=== PATIENT | female | born 1940 | race Hispanic/Latino ===

== ENCOUNTER 2018-08-21 17:50 | Emergency (ER) | payer MEDICARE, OTHER ==
[~2018-08-21] VITALS: Ht 157.5 cm; Wt 99.8 kg
[~2018-08-21 17:50] MED LIST: BACLOFEN10 MG PO; GABAPENTIN100 MG PO; METFORMIN HCL1000 MG PO; STAGESIC 5-5001 EACH PO; ZOFRAN ODT4 MG PO
[2018-08-21 18:36] LABS: BASOPHILS # (AUTO) 0.1 (0.0-0.1); BASOPHILS % 0.7 % (0.0-1.0); EOSINOPHILS # (AUTO) 0.3 (0.0-0.4); EOSINOPHILS % 3.4 % (0.0-6.0); HEMATOCRIT 43.7 % (34.2-44.1); HEMOGLOBIN 14.7 g/dL (12.0-16.0); LYMPHOCYTES % 26.3 % (18.0-39.1); MEAN CORPUSCULAR HEMOGLOBIN 30.9 pg (28-32); MEAN CORPUSCULAR HGB CONC 33.6 g/dL (31-35); MONOCYTES # (AUTO) 0.8 (0.2-0.8); MONOCYTES % 10.7 % (4.4-11.3); NEUTROPHILS # (AUTO) 4.4 (2.1-6.9); NEUTROPHILS % 58.5 % (38.7-80.0); PLATELET COUNT 232 x10e3/uL (140-360); RED BLOOD COUNT 4.75 x10e6/uL (3.6-5.1)
[2018-08-21 18:45] LABS: INR 1.01; PROTHROMBIN TIME 14.2 seconds (11.9-14.5)
[2018-08-21 18:45] LABS: BILIRUBIN,URINE NEGATIVE (NEGATIVE); CLARITY,URINE CLEAR (CLEAR); COLOR,URINE YELLOW (YELLOW); KETONES,URINE NEGATIVE (NEGATIVE); LEUKOCYTE ESTERASE ,URINE TRACE (NEGATIVE); NITRITE,URINE NEGATIVE (NEGATIVE); PROTEIN,URINE DIPSTICK NEGATIVE (NEGATIVE); URINE UROBILINOGEN 0.2 mg/dL (0.2 - 1)
[2018-08-21 18:46] LABS: PARTIAL THROMBOPLASTIN TIME 35.4 seconds (23.8-35.5)
[2018-08-21 18:52] LABS: EPITHELIAL CELLS,URINE RARE /LPF
[2018-08-21 18:54] LABS: ALANINE AMINOTRANSFERASE 50 IU/L (0-55); ALBUMIN 4.3 g/dL (3.5-5.0); ALBUMIN/GLOBULIN RATIO 1.2 (0.8-2.0); ALKALINE PHOSPHATASE 63 IU/L (40-150); ANION GAP 13.2 mmol/L (8-16); BLOOD UREA NITROGEN 16 mg/dL (7-26); BUN/CREATININE RATIO 12 (6-25); CALCIUM 9.2 mg/dL (8.4-10.2); CARBON DIOXIDE 21 mmol/L (22-29); CHLORIDE 100 mmol/L (98-107); CREATINE KINASE 215 IU/L (29-168); CREATININE, SERUM 1.38 mg/dL (0.57-1.11); EST GLOMERULAR FILTRATION RATE 37 ML/MIN (60-); GLUCOSE 99 mg/dL (74-118); MAGNESIUM 2.5 MG/DL (1.3-2.1); POTASSIUM 4.2 mmol/L (3.5-5.1); SODIUM 130 mmol/L (136-145)
--- NOTE | 2018-08-21 19:50 | Diagnostic Imaging Report ---
EXAMINATION: CHEST SINGLE (PORTABLE) INDICATION: Chest pressure. COMPARISON: None FINDINGS: AP view TUBES and LINES: None. LUNGS: Lungs are well inflated. Lungs are clear. There is no evidence of pneumonia or pulmonary edema. PLEURA: No pleural effusion or pneumothorax. HEART AND MEDIASTINUM: The cardiomediastinal silhouette is unremarkable. BONES AND SOFT TISSUES: No acute osseous lesion. Soft tissues are unremarkable. UPPER ABDOMEN: No free air under the diaphragm. IMPRESSION: No acute thoracic abnormality. Signed by: DR. Reji Abdullahi MD on 08/21/2018 7:47 PM
[2018-08-21] MEDS ORDERED: DEXAMETHASONE SOD PHOS 10 MG/1 ML VIAL IV ONE (20:15)
[2018-08-21] MEDS ORDERED: SODIUM CHLORIDE 0.9% 1000ML 1,000 ML ONE (21:01)
[2018-08-21] MEDS ORDERED: SODIUM CHLORIDE 0.9% 1000ML 1,000 ML IV SCH (21:15)
[2018-08-21] MEDS ORDERED: ACETAMINOPHEN/CODEINE 300MG - 30MG TAB PO ONE (21:15)
[2018-08-21 21:48] VITALS: BP 150/79
[2018-08-21] MEDS ORDERED: CEFDINIR300 MG PO (22:04)
== END 2018-08-21 22:08 | disposition home or self-care (01) ==
LOC: ER 17:50
DX: R00.2 Palpitations (principal); R05 Cough; J20.9 Acute bronchitis, unspecified; E11.9 Type 2 diabetes mellitus without complications; I10 Essential (primary) hypertension; I25.10 Atherosclerotic heart disease of native coronary artery without angina pectoris; I73.9 Peripheral vascular disease, unspecified
CPT/HCPCS: 36415; 71045; 80053; 81001; 82550; 82553; 83735; 84484; 85025; 85610; 85730; 93005; 96374; 99284; J1100; J7030

== ENCOUNTER 2021-12-30 15:56 | Emergency (ER) | payer MEDICARE ==
[~2021-12-30] VITALS: Ht 157.5 cm; Wt 99.8 kg
[~2021-12-30 15:56] MED LIST changes: +CEFDINIR300 MG PO
[2021-12-30 16:23] LABS: BASOPHILS # (AUTO) 0.1 (0.0-0.1); BASOPHILS % 0.6 % (0.0-1.0); EOSINOPHILS # (AUTO) 0.2 (0.0-0.4); EOSINOPHILS % 1.6 % (0.0-6.0); LYMPHOCYTES # (AUTO) 2.3 (1.0-3.2); LYMPHOCYTES % 24.8 % (18.0-39.1); MEAN CORPUSCULAR HEMOGLOBIN 31.7 pg (28-32); MEAN CORPUSCULAR HGB CONC 32.5 g/dL (31-35); MEAN CORPUSCULAR VOLUME 97.6 fL (81-99); MONOCYTES # (AUTO) 0.9 (0.2-0.8); MONOCYTES % 9.7 % (4.4-11.3); NEUTROPHILS # (AUTO) 5.8 (2.1-6.9); NEUTROPHILS % 62.9 % (38.7-80.0); PLATELET COUNT 222 x10e3/uL (140-360); RED CELL DISTRIBUTION WIDTH 13.2 % (11.7-14.4)
[2021-12-30 16:41] LABS: ALBUMIN 3.7 g/dL (3.5-5.0); ALBUMIN/GLOBULIN RATIO 1.1 (0.8-2.0); ANION GAP 12.3 mmol/L (8-16); CALCIUM 8.6 mg/dL (8.4-10.2); CREATININE, SERUM 1.19 mg/dL (0.57-1.11); POTASSIUM 4.3 mmol/L (3.5-5.1)
== END 2021-12-30 17:55 | disposition home or self-care (01) ==
LOC: ER 16:01
DX: S81.801A Unspecified open wound, right lower leg, initial encounter (principal); I10 Essential (primary) hypertension; E11.9 Type 2 diabetes mellitus without complications; I25.10 Atherosclerotic heart disease of native coronary artery without angina pectoris; K21.9 Gastro-esophageal reflux disease without esophagitis; G70.00 Myasthenia gravis without (acute) exacerbation; M54.9 Dorsalgia, unspecified; G89.29 Other chronic pain
CPT/HCPCS: 36415; 80053; 85025; 99283

== ENCOUNTER 2022-03-08 13:02 | Emergency (ER) | payer MEDICARE ==
[~2022-03-08] VITALS: Ht 157.5 cm; Wt 99.8 kg
[2022-03-08 13:34] LABS: BASOPHILS % 0.5 % (0.0-1.0); EOSINOPHILS # (AUTO) 0.1 (0.0-0.4); EOSINOPHILS % 1.3 % (0.0-6.0); HEMATOCRIT 43.1 % (34.2-44.1); HEMOGLOBIN 14.2 g/dL (12.0-16.0); LYMPHOCYTES % 23.8 % (18.0-39.1); MEAN CORPUSCULAR HGB CONC 32.9 g/dL (31-35); MEAN CORPUSCULAR VOLUME 94.1 fL (81-99); MONOCYTES # (AUTO) 0.6 (0.2-0.8); MONOCYTES % 7.5 % (4.4-11.3); NEUTROPHILS # (AUTO) 5.5 (2.1-6.9); NEUTROPHILS % 66.5 % (38.7-80.0); PLATELET COUNT 212 x10e3/uL (140-360); RED BLOOD COUNT 4.58 x10e6/uL (3.6-5.1); RED CELL DISTRIBUTION WIDTH 12.9 % (11.7-14.4)
[2022-03-08 14:17] LABS: ALBUMIN/GLOBULIN RATIO 1.1 (0.8-2.0); ANION GAP 12.9 mmol/L (8-16); CREATININE, SERUM 1.05 mg/dL (0.57-1.11); POTASSIUM 3.9 mmol/L (3.5-5.1)
[2022-03-08 14:22] LABS: CLARITY,URINE TURBID (CLEAR); COLOR,URINE YELLOW (YELLOW); KETONES,URINE NEGATIVE (NEGATIVE); LEUKOCYTE ESTERASE ,URINE LARGE (NEGATIVE); NITRITE,URINE POSITIVE (NEGATIVE); PROTEIN,URINE DIPSTICK NEGATIVE (NEGATIVE); URINE UROBILINOGEN 0.2 mg/dL (0.2 - 1)
[2022-03-08 14:31] LABS: BACTERIA,URINE MODERATE /HPF; EPITHELIAL CELLS,URINE MODERATE /LPF; RBC,URINE 0-5 /HPF (0-5); RENAL EPITHELIAL CELLS,URINE FEW
[2022-03-08] MEDS ORDERED: SODIUM CHLORIDE 0.9% 500ML 500 ML IV ONE (15:00)
[2022-03-08] MEDS ORDERED: CEFDINIR300 MG PO (15:47)
== END 2022-03-08 16:24 | disposition home or self-care (01) ==
LOC: ER 13:05
DX: R53.1 Weakness (principal); N39.0 Urinary tract infection, site not specified; I10 Essential (primary) hypertension; E11.65 Type 2 diabetes mellitus with hyperglycemia; I25.10 Atherosclerotic heart disease of native coronary artery without angina pectoris; K21.9 Gastro-esophageal reflux disease without esophagitis; M54.9 Dorsalgia, unspecified; G89.29 Other chronic pain; Z20.822 Contact with and (suspected) exposure to COVID-19
CPT/HCPCS: 36415; 70450; 71045; 80053; 81001; 83735; 84484; 85025; 87086; 87186; 93005; 99284; J0696; J7040; U0002

== ENCOUNTER 2022-04-13 06:32 | Emergency (ER) | payer MEDICARE ==
[~2022-04-13] VITALS: Ht 157.5 cm; Wt 99.8 kg
[2022-04-13] MEDS ORDERED: ONDANSETRON HCL INJ 2MG/ML 2ML 2 MG/ML VIAL IV STA (07:06)
[2022-04-13 07:12] LABS: BASOPHILS % 0.5 % (0.0-1.0); EOSINOPHILS % 0.2 % (0.0-6.0); HEMATOCRIT 42.6 % (34.2-44.1); HEMOGLOBIN 14.2 g/dL (12.0-16.0); LYMPHOCYTES # (AUTO) 1.5 (1.0-3.2); LYMPHOCYTES % 17.6 % (18.0-39.1); MEAN CORPUSCULAR HEMOGLOBIN 31.3 pg (28-32); MEAN CORPUSCULAR HGB CONC 33.3 g/dL (31-35); MONOCYTES # (AUTO) 0.5 (0.2-0.8); MONOCYTES % 5.2 % (4.4-11.3); NEUTROPHILS # (AUTO) 6.5 (2.1-6.9); NEUTROPHILS % 75.3 % (38.7-80.0); PLATELET COUNT 217 x10e3/uL (140-360); RED BLOOD COUNT 4.53 x10e6/uL (3.6-5.1); RED CELL DISTRIBUTION WIDTH 12.7 % (11.7-14.4)
[2022-04-13] MEDS ORDERED: MECLIZINE HCL 12.5 MG TAB PO ONE (07:15)
[2022-04-13] MEDS ORDERED: SODIUM CHLORIDE 0.9% 500ML 500 ML IV ONE (07:15)
[2022-04-13 07:48] LABS: ALANINE AMINOTRANSFERASE 25 IU/L (0-55); ALBUMIN 4.2 g/dL (3.5-5.0); ALBUMIN/GLOBULIN RATIO 1.1 (0.8-2.0); ALKALINE PHOSPHATASE 55 IU/L (40-150); ANION GAP 16.4 mmol/L (8-16); BLOOD UREA NITROGEN 13 mg/dL (7-26); BUN/CREATININE RATIO 14 (6-25); CALCIUM 9.3 mg/dL (8.4-10.2); CARBON DIOXIDE 20 mmol/L (22-29); CHLORIDE 107 mmol/L (98-107); CREATINE KINASE 68 IU/L (29-168); CREATININE, SERUM 0.92 mg/dL (0.57-1.11); GLUCOSE 200 mg/dL (74-118); INR 1.07; MAGNESIUM 2.2 MG/DL (1.3-2.1); POTASSIUM 4.4 mmol/L (3.5-5.1); PROTHROMBIN TIME 14.9 seconds (11.9-14.5); SODIUM 139 mmol/L (136-145)
[2022-04-13 07:49] LABS: PARTIAL THROMBOPLASTIN TIME 35.3 seconds (23.8-35.5)
[2022-04-13] MEDS ORDERED: ONDANSETRON ODT4 MG PO (09:24)
[2022-04-13] MEDS ORDERED: MECLIZINE HCL12.5 MG PO (09:24)
== END 2022-04-13 10:16 | disposition home or self-care (01) ==
LOC: ER 06:41
DX: R42 Dizziness and giddiness (principal); E66.9 Obesity, unspecified; I10 Essential (primary) hypertension; E11.9 Type 2 diabetes mellitus without complications; I25.10 Atherosclerotic heart disease of native coronary artery without angina pectoris; Z88.0 Allergy status to penicillin; Z90.49 Acquired absence of other specified parts of digestive tract; Z68.41 Body mass index [BMI] 40.0-44.9, adult
CPT/HCPCS: 36415; 70450; 80053; 82550; 82553; 83735; 83880; 84484; 85025; 85610; 85730; 93005; 99284; J2405; J7040; J8597

== ENCOUNTER 2024-01-27 04:35 | Emergency (ER) | payer MEDICARE ==
[~2024-01-27] VITALS: Ht 157.5 cm; Wt 99.8 kg
[~2024-01-27 04:35] MED LIST changes: +MECLIZINE HCL12.5 MG PO; +ONDANSETRON ODT4 MG PO; +ULTRAM 50MG50 MG PO
[2024-01-27] MEDS: Morphine 4mg INJECTION 4 MG/ML INJ IV ONE (05:05)
[2024-01-27] MEDS: ONDANSETRON HCL INJ 2MG/ML 2ML 2 MG/ML VIAL IV STA (05:05)
[2024-01-27] MEDS: SODIUM CHLORIDE 0.9% 1000ML 1,000 ML IV ONE (05:05)
[2024-01-27 05:22] LABS: BASOPHILS % 0.2 % (0.0-1.0); EOSINOPHILS % 0.2 % (0.0-6.0); HEMOGLOBIN 15.1 g/dL (12.0-16.0); LYMPHOCYTES # (AUTO) 1.6 (1.0-3.2); LYMPHOCYTES % 17.3 % (18.0-39.1); MEAN CORPUSCULAR HEMOGLOBIN 30.3 pg (28-32); MEAN CORPUSCULAR HGB CONC 32.8 g/dL (31-35); MEAN CORPUSCULAR VOLUME 92.2 fL (81-99); MONOCYTES # (AUTO) 0.6 (0.2-0.8); MONOCYTES % 6.5 % (4.4-11.3); NEUTROPHILS # (AUTO) 7.1 (2.1-6.9); NEUTROPHILS % 75.2 % (38.7-80.0); PLATELET COUNT 215 x10e3/uL (140-360); RED BLOOD COUNT 4.99 x10e6/uL (3.6-5.1); RED CELL DISTRIBUTION WIDTH 13.6 % (11.7-14.4); WHITE BLOOD COUNT 9.49 x10e3/uL (4.8-10.8)
[2024-01-27 05:38] LABS: ALANINE AMINOTRANSFERASE 27 IU/L (0-55); ALBUMIN 4.3 g/dL (3.5-5.0); ALBUMIN/GLOBULIN RATIO 1.4 (0.8-2.0); ALKALINE PHOSPHATASE 50 IU/L (40-150); ANION GAP 19.9 mmol/L (8-16); BILIRUBIN,TOTAL 0.8 mg/dL (0.2-1.2); BLOOD UREA NITROGEN 13 mg/dL (7-26); BUN/CREATININE RATIO 13 (6-25); CALCIUM 9.8 mg/dL (8.4-10.2); CARBON DIOXIDE 20 mmol/L (22-29); CHLORIDE 102 mmol/L (98-107); CREATINE KINASE 19 IU/L (29-168); CREATININE, SERUM 1.02 mg/dL (0.57-1.11); EST GLOMERULAR FILTRATION RATE 54 ML/MIN (>=60); GLUCOSE 157 mg/dL (74-118); POTASSIUM 3.9 mmol/L (3.5-5.1); SODIUM 138 mmol/L (136-145); TOTAL PROTEIN 7.4 g/dL (6.5-8.1)
[2024-01-27 06:04] LABS: TROPONIN I < 0.05 ng/mL (0.0-0.40)
[2024-01-27 06:05] LABS: COLOR,URINE YELLOW (YELLOW)
[2024-01-27 06:06] LABS: BILIRUBIN,URINE MODERATE (NEGATIVE); CLARITY,URINE CLEAR (CLEAR); GLUCOSE, URINE NEGATIVE (NEGATIVE); KETONES,URINE >=160 (NEGATIVE); LEUKOCYTE ESTERASE ,URINE TRACE (NEGATIVE); NITRITE,URINE NEGATIVE (NEGATIVE); PH,URINE 5.5 (5 - 7); PROTEIN,URINE DIPSTICK 2+ (NEGATIVE); URINE UROBILINOGEN 0.2 mg/dL (0.2 - 1)
[2024-01-27 06:35] LABS: RBC,URINE 0-5 /HPF (0-5); WBC,URINE (MAN) 21-50 /HPF (0-5)
[2024-01-27 06:36] LABS: BACTERIA,URINE FEW /HPF; EPITHELIAL CELLS,URINE FEW /LPF
[2024-01-27 07:15] VITALS: PULSE 54; RESP 16; TEMP 98.4; O2SAT 98
[2024-01-27] MEDS ORDERED: IOPAMIDOL 370 MG/ML 100 ML INFUS..BTL INJ ONE (07:29)
[2024-01-27] MEDS: DIPHENHYDRAMINE HCL INJ 50 MG/ML VIAL IV ONE (07:56)
[2024-01-27] MEDS: PROMETHAZINE 12.5MG/ NACL 0.9% 12.5 MG/50 ML BAG IV ONE (07:56)
[2024-01-27] MEDS: SODIUM CHLORIDE 0.9% 500ML 500 ML IV ONE (07:57)
[2024-01-27] MEDS ORDERED: BACTRIM DS TAB1 EACH PO (09:35)
[2024-01-27] MEDS ORDERED: CIPRO500 MG PO (09:35)
[2024-01-27] MEDS ORDERED: PROMETHAZINE12.5 MG PR (09:35)
== END 2024-01-27 10:00 | disposition home or self-care (01) ==
LOC: ER 04:45
DX: R11.2 Nausea with vomiting, unspecified (principal); R10.30 Lower abdominal pain, unspecified; N39.0 Urinary tract infection, site not specified; E11.65 Type 2 diabetes mellitus with hyperglycemia; I10 Essential (primary) hypertension; I25.10 Atherosclerotic heart disease of native coronary artery without angina pectoris; K57.90 Diverticulosis of intestine, part unspecified, without perforation or abscess without bleeding; K21.9 Gastro-esophageal reflux disease without esophagitis; F41.9 Anxiety disorder, unspecified; E78.5 Hyperlipidemia, unspecified; K76.0 Fatty (change of) liver, not elsewhere classified; M54.9 Dorsalgia, unspecified; G89.29 Other chronic pain; R94.31 Abnormal electrocardiogram [ECG] [EKG]
CPT/HCPCS: 36415; 74177; 80053; 81001; 82550; 84484; 85025; 87086; 93005; 99284; C9113; J0696; J1200; J2270; J2405; J2550; J7030; J7040; Q9967

== ENCOUNTER 2025-05-17 01:52 | Inpatient (IN) | payer MEDICARE ==
[~2025-05-17] VITALS: Ht 157.5 cm; Wt 99.8 kg
[~2025-05-17 01:52] MED LIST changes: +BACTRIM DS TAB1 EACH PO; +CIPRO500 MG PO; +PROMETHAZINE12.5 MG PR
[2025-05-17] MEDS ORDERED: Morphine 4mg INJECTION 4 MG/ML INJ IV STA (02:01)
[2025-05-17 02:08] VITALS: RESP 19; TEMP 98.1
[2025-05-17] MEDS: ONDANSETRON HCL INJ 2MG/ML 2ML 2 MG/ML VIAL IV STA (02:21)
[2025-05-17] MEDS: SODIUM CHLORIDE 0.9% 1000ML 1,000 ML IV STA (02:21)
[2025-05-17 02:23] LABS: BASOPHILS % 0.5 % (0.0-1.0); EOSINOPHILS % 2.0 % (0.0-6.0); LYMPHOCYTES % 17.6 % (18.0-39.1); MONOCYTES % 6.8 % (4.4-11.3); NEUTROPHILS % 72.8 % (38.7-80.0); RED CELL DISTRIBUTION WIDTH 12.8 % (11.7-14.4)
[2025-05-17 02:47] LABS: EST GLOMERULAR FILTRATION RATE 51.0 ML/MIN (>=60)
[2025-05-17] MEDS: MECLIZINE HCL 12.5 MG TAB PO ONE (03:17)
[2025-05-17] MEDS ORDERED: PROMETHAZINE HCL (IM) 25 MG/ML VIAL IM ONE (03:45)
[2025-05-17] MEDS ORDERED: Morphine 4mg INJECTION 4 MG/ML INJ IV PRN (04:30)
[2025-05-17] MEDS: SODIUM CHLORIDE 0.9% 1000ML 1,000 ML IV SCH (04:54)
[2025-05-17] MEDS ORDERED: IOPAMIDOL 370 MG/ML 100 ML INFUS..BTL INJ ONE (04:57)
[2025-05-17 06:29] LABS: LEUKOCYTE ESTERASE ,URINE MODERATE (NEGATIVE)
[2025-05-17 06:30] VITALS: PULSE 81
[2025-05-17 06:30] LABS: PROTEIN,URINE DIPSTICK NEGATIVE (NEGATIVE); URINE UROBILINOGEN 0.2 mg/dL (0.2 - 1)
[2025-05-17] MEDS: KETOROLAC TROMETHAMINE 30 MG/ML VIAL IV STA (06:52)
[2025-05-17 06:54] LABS: EPITHELIAL CELLS,URINE MODERATE /LPF; WBC,URINE (MAN) >50 /HPF (0-5)
[2025-05-17 08:00] VITALS: BP 144/60; PULSE 74; RESP 17; TEMP 97.6; O2SAT 99
[2025-05-17] MEDS: PROMETHAZINE 12.5MG/ NACL 0.9% 50 ML IV STA (09:34)
[2025-05-17] MEDS ORDERED: TRAMADOL HCL 50 MG TAB PO PRN (10:00)
[2025-05-17] MEDS ORDERED: DEXTROSE 50% SYRINGE 50 ML IV PRN (10:00)
[2025-05-17] MEDS ORDERED: LISINOPRIL10 MG PO (10:24)
[2025-05-17] MEDS ORDERED: LYRICA150 MG PO (10:28)
[2025-05-17] MEDS ORDERED: FEROSUL325 MG PO (10:28)
[2025-05-17] MEDS: METOCLOPRAMIDE HCL 10 MG/2ML VIAL IV SCH (10:37)
[2025-05-17] MEDS: APIXABAN 5 MG TABLET PO SCH (10:37)
[2025-05-17] MEDS: INSULIN LISPRO 100 UNIT/1 ML 3ML VIAL SQ SCH (11:30)
[2025-05-17 12:30] VITALS: BP 131/55; PULSE 77; RESP 19; TEMP 97.7; O2SAT 100
[2025-05-17] MEDS: ONDANSETRON HCL INJ 2MG/ML 2ML 2 MG/ML VIAL IV PRN (14:40)
[2025-05-17 16:00] VITALS: BP 131/59; PULSE 76; RESP 18; TEMP 97.6; O2SAT 100
[2025-05-17] MEDS: MECLIZINE HCL 12.5 MG TAB PO PRN (16:15)
[2025-05-17 20:00] VITALS: BP 131/56; PULSE 72; RESP 18; TEMP 97.7; O2SAT 99
[2025-05-18] VITALS (7 sets, daily range): BP systolic 137–156; BP diastolic 53–64; PULSE 66–73; RESP 17–18; TEMP 97.5–98.6; O2SAT 96–100
[2025-05-18] MEDS: ACETAMINOPHEN 325 MG TAB PO PRN (01:05)
[2025-05-18 07:13] LABS: BASOPHILS % 0.2 % (0.0-1.0); EOSINOPHILS % 0.9 % (0.0-6.0); LYMPHOCYTES % 16.8 % (18.0-39.1); MONOCYTES % 7.3 % (4.4-11.3); NEUTROPHILS % 74.0 % (38.7-80.0); RED CELL DISTRIBUTION WIDTH 12.7 % (11.7-14.4)
[2025-05-18 07:23] LABS: EST GLOMERULAR FILTRATION RATE 76.0 ML/MIN (>=60)
[2025-05-18] MEDS: GABAPENTIN 100 MG CAP PO SCH (08:26)
[2025-05-18 14:32] LABS: EST GLOMERULAR FILTRATION RATE 69.0 ML/MIN (>=60)
[2025-05-19] VITALS (8 sets, daily range): BP systolic 133–149; BP diastolic 53–66; PULSE 64–74; RESP 17–18; TEMP 97.4–98.1; O2SAT 98–100
[2025-05-19] MEDS: MECLIZINE HCL 12.5 MG TAB PO STA (01:51)
[2025-05-19] MEDS: MECLIZINE HCL 12.5 MG TAB PO SCH (06:10)
[2025-05-19] MEDS: BACLOFEN 10 MG TAB PO PRN (20:28)
[2025-05-20] VITALS: BP 151/56; PULSE 65; RESP 18; TEMP 97.7; O2SAT 99
[2025-05-20 04:00] VITALS: BP 170/74; PULSE 70; RESP 18; TEMP 98.2; O2SAT 99
[2025-05-20] MEDS: HYDRALAZINE HCL 20 MG/ML VIAL IV PRN (06:02)
[2025-05-20 07:15] VITALS: BP 137/52; PULSE 97; RESP 14; TEMP 98.2; O2SAT 97
[2025-05-20 08:00] VITALS: BP 137/52; PULSE 97; RESP 16; TEMP 98.2; O2SAT 99
[2025-05-20 08:50] VITALS: BP 137/52; PULSE 97; RESP 16; TEMP 98.2; O2SAT 99
[2025-05-20] MEDS: CIPROFLOXACIN 500 MG TAB PO ONE (10:10)
[2025-05-20 11:10] VITALS: BP 136/59; PULSE 85; RESP 18; TEMP 97.8; O2SAT 97
== END 2025-05-20 12:20 | disposition home or self-care (01) | DRG 690 ==
LOC: ER 01:59 → ERHOLD 04:19 → MED/SURG3 07:48
PROVIDERS: ADMIT Internal Medicine; ATTEND Internal Medicine
DX: N39.0 Urinary tract infection, site not specified (principal); Z68.41 Body mass index [BMI] 40.0-44.9, adult; E66.813 Obesity, class 3; B96.5 Pseudomonas (aeruginosa) (mallei) (pseudomallei) as the cause of diseases classified elsewhere; I10 Essential (primary) hypertension; E11.9 Type 2 diabetes mellitus without complications; I25.10 Atherosclerotic heart disease of native coronary artery without angina pectoris; K21.9 Gastro-esophageal reflux disease without esophagitis; G43.909 Migraine, unspecified, not intractable, without status migrainosus; R53.1 Weakness; R42 Dizziness and giddiness; F41.9 Anxiety disorder, unspecified; R11.2 Nausea with vomiting, unspecified; Z79.01 Long term (current) use of anticoagulants; Z79.84 Long term (current) use of oral hypoglycemic drugs; Z95.820 Peripheral vascular angioplasty status with implants and grafts; Z86.718 Personal history of other venous thrombosis and embolism; Z88.0 Allergy status to penicillin; Z88.5 Allergy status to narcotic agent
CPT/HCPCS: 36415; 70450; 70551; 74177; 80048; 80053; 81001; 82550; 82948; 83036; 83690; 84443; 84484; 85025; 87040; 87086; 87186; 93005; 93970; 96372; 99284; J0360; J1885; J2405; J2470; J2765; J7030; Q9967